=== PATIENT | male | born 1965 | race African-American/Black ===

== ENCOUNTER 2017-08-13 15:24 | Emergency (ER) | payer OTHER ==
[~2017-08-13] VITALS: Ht 172.7 cm; Wt 83.0 kg
[~2017-08-13 15:24] MED LIST: DENIES CURRENT MEDS; FLEXERIL PO; LORTAB 5/3255 MG PO; NAPROSYN500 MG PO; ULTRAM50 MG PO
[2017-08-13] MEDS ORDERED: FLEXERIL PO (16:15)
[2017-08-13] MEDS ORDERED: ULTRAM50 M1 PO (16:15)
[2017-08-13 16:34] VITALS: BP 133/78
== END 2017-08-13 16:34 | disposition home or self-care (01) | DRG 563 ==
LOC: ED 15:24
DX: S39.012A Strain of muscle, fascia and tendon of lower back, initial encounter (principal); G89.29 Other chronic pain

== ENCOUNTER 2017-08-25 14:05 | Emergency (ER) | payer OTHER ==
[~2017-08-25] VITALS: Ht 172.7 cm; Wt 86.4 kg
[~2017-08-25 14:05] MED LIST changes: +ULTRAM50 M1 PO
[2017-08-25] MEDS ORDERED: PREDNISONE50 MG PO (14:53)
[2017-08-25 15:00] VITALS: BP 138/88
== END 2017-08-25 15:00 | disposition home or self-care (01) | DRG 552 ==
LOC: ED 14:05
DX: M54.16 Radiculopathy, lumbar region (principal)

== ENCOUNTER 2017-12-19 11:46 | Emergency (ER) | payer MEDICARE, OTHER ==
[~2017-12-19] VITALS: Ht 172.7 cm; Wt 85.0 kg
[~2017-12-19 11:46] MED LIST changes: +PREDNISONE50 MG PO
[2017-12-19] MEDS ORDERED: GABAPENTIN100 MG PO (12:00)
[2017-12-19] MEDS ORDERED: PERCOCET 5/321 COMBO PO (12:00)
[2017-12-19] MEDS ORDERED: BACTRIM DS1 TAB PO (12:02)
[2017-12-19] MEDS ORDERED: LEVAQUIN750 M1 PO (12:02)
[2017-12-19] MEDS ORDERED: CEPHALEXIN500 M1 PO (12:02)
[2017-12-19] MEDS ORDERED: HYDROCO/APAP1 TA9 PO (12:38)
[2017-12-19 12:45] VITALS: BP 145/77
== END 2017-12-19 12:50 | disposition home or self-care (01) ==
LOC: ED 11:46
DX: S91.332A Puncture wound without foreign body, left foot, initial encounter (principal); L03.116 Cellulitis of left lower limb; W22.8XXA Striking against or struck by other objects, initial encounter; Y92.22 Religious institution as the place of occurrence of the external cause

== ENCOUNTER 2018-01-16 10:19 | Emergency (ER) | payer MEDICARE, OTHER ==
[~2018-01-16] VITALS: Ht 172.7 cm; Wt 85.0 kg
[~2018-01-16 10:19] MED LIST changes: +BACTRIM DS1 TAB PO; +CEPHALEXIN500 M1 PO; +GABAPENTIN100 MG PO; +HYDROCO/APAP1 TA9 PO; +LEVAQUIN750 M1 PO; +PERCOCET 5/321 COMBO PO
[2018-01-16 11:17] LABS: HEMATOCRIT 41.3 % (39.0-50.0); HEMOGLOBIN 13.7 g/dl (14.0-18.0); IMMATURE GRANULOCYTES 0.2 % (0.0-1.0); MEAN CELL VOLUME 96.5 fL CALC (80.0-100.0); MEAN CORPUSCULAR HGB CONC 33.2 g/L CALC (32.0-36.0); NEUT# 3.13 thou/uL (1.82-7.42); RED BLOOD COUNT 4.28 mill/uL (4.70-6.10)
[2018-01-16 11:29] LABS: ANION GAP 13 (6-22 (CALC)); BUN 9 mg/dL (9-20); BUN/CREATININE RATIO 9 (12-20 (CALC)); CARBON DIOXIDE 30 mmol/l (22-30); CHLORIDE 102 mmol/l (95-108); GFR > 60 ML/MIN (>=60 (CALC)); GFR FOR AFR.AMER. > 60 ML/MIN (>=60 (CALC)); POTASSIUM 3.8 mmol/l (3.5-5.1); SODIUM 141 mmol/l (137-146)
[2018-01-16] MEDS ORDERED: ASPERCREME LIDOCA41 TOP (12:41)
[2018-01-16] MEDS ORDERED: MOTRIN400 MG PO (12:41)
[2018-01-16 12:59] VITALS: BP 141/87
== END 2018-01-16 12:59 | disposition home or self-care (01) ==
LOC: ED 10:19
PROVIDERS: Family Medicine
DX: S39.012A Strain of muscle, fascia and tendon of lower back, initial encounter (principal); G58.8 Other specified mononeuropathies; F17.210 Nicotine dependence, cigarettes, uncomplicated; X58.XXXA Exposure to other specified factors, initial encounter

== ENCOUNTER → 2018-11-18 | Outpatient (REF) | payer OTHER ==
[~2018-11-18] MED LIST changes: +ASPERCREME LIDOCA41 TOP; +MOTRIN400 MG PO
[2018-11-18 11:15] LABS: ALBUMIN 4.3 g/dL (3.2-5.0); ALKALINE PHOSPHATASE 98 u/l (38-126); ANION GAP 14 (6-22 (CALC)); BILIRUBIN, TOTAL 0.7 mg/dL (0.0-1.4); BUN 20 mg/dL (9-20); BUN/CREATININE RATIO 16 (12-20 (CALC)); CALCULATED LDLCHOLESTEROL 148 mg/dL (62-129 (CALC)); CARBON DIOXIDE 30 mmol/l (22-30); CHLORIDE 99 mmol/l (95-108); CHOLESTEROL HDL RATIO 5.6 (<4.4 (CALC)); CREATININE 1.2 mg/dL (0.7-1.3); GFR > 60 ML/MIN (>=60 (CALC)); GFR FOR AFR.AMER. > 60 ML/MIN (>=60 (CALC)); HDL CHOLESTEROL 41 mg/dL (>=40); POTASSIUM 3.8 mmol/l (3.5-5.1); SGOT/AST 66 u/l (17-59); SODIUM 139 mmol/l (137-146); TOTAL CHOLESTEROL 229 mg/dl (0-199); TOTAL PROTEIN 8.1 g/dL (6.3-8.2); TOTAL TRIGLYCERIDES 199 mg/dl (30-149); VLDL CHOLESTROL 40 mg/dl (8-62 (CALC))
== END | disposition home or self-care (01) | DRG 305 ==
LOC: LABSPEC 10:23
PROVIDERS: ATTEND Nurse Practitioner Family
DX: I10 Essential (primary) hypertension (principal)